=== PATIENT | female | born 1980 | race Caucasian/White ===

== ENCOUNTER 2017-02-26 11:50 | Emergency (ER) | payer OTHER ==
[~2017-02-26] VITALS: Ht 165.1 cm; Wt 72.7 kg
[~2017-02-26 11:50] MED LIST: COLACE100 MG PO; CYMBALTA60 MG PO; ENDOCET 5-3251 EACH PO; Flagyl PO; MAXALT10 MG PO; MOTRIN800 MG PO; Maxalt PO; Natalcare Rx,Pramile PO; PERCOCET 10/1 TABLET PO; Percocet 5/325,Endoc PO; Protonix PO
[2017-02-26 12:59] LABS: HEMATOCRIT 40.3 % (36.0-46.0); HEMOGLOBIN 13.7 G/DL (11.9-15.5); MCH 30.5 PG (29.0-34.0); MCV 89.8 FL (83-99); PLATELET COUNT 238 K/uL (156-360); RBC DIS.WIDTH-CV 13.2 % (11.8-14.6); RBC DIS.WIDTH-SD 43.4 % (39-53); RED BLOOD COUNT 4.49 M/uL (3.80-5.20); WHITE BLOOD COUNT 5.2 K/uL (4.1-10.2)
[2017-02-26 13:17] LABS: CHLORIDE 101 mEq/L (99-109); POTASSIUM 4.2 mEq/L (3.7-5.4); SODIUM 138 mEq/L (136-147)
[2017-02-26 13:18] LABS: GLUCOSE 79 mg/dL (70-99)
[2017-02-26 13:22] LABS: CREATININE 0.7 mg/dL (0.6-1.3); GFR ESTIMATE (CALCULATED) > 59 mL/min/
[2017-02-26 13:23] LABS: UREA NITROGEN (BUN) 8 mg/dL (9-23)
[2017-02-26 13:24] LABS: TROP-I INTERPRETATION NEGATIVE; TROPONIN-I < 0.01 ng/mL (0.0-0.30)
[2017-02-26 14:25] LABS: QUANTITATIVE HCG < 4.0 MIU/ML
[2017-02-26 14:36] LABS: ALBUMIN 4.1 g/dL (3.2-4.8)
[2017-02-26 14:39] LABS: TOTAL PROTEIN 7.5 g/dL (6.4-8.3)
[2017-02-26 14:40] LABS: TOTAL BILIRUBIN 1.1 mg/dL (0.0-1.0)
[2017-02-26 14:41] LABS: ALKALINE PHOSPHATASE 185 IU/L (3-129)
[2017-02-26 14:44] LABS: AST (GOT) 436 IU/L (2-34); DIRECT BILIRUBIN 0.6 mg/dL (0.0-0.3)
[2017-02-26 14:45] LABS: ALT (GPT) 375 IU/L (3-49); LIPASE 84 U/L (1.0-51.0)
[2017-02-26 15:11] LABS: TROP-I INTERPRETATION NEGATIVE; TROPONIN-I < 0.01 ng/mL (0.0-0.30)
[2017-02-26 17:12] LABS: INTER. NORMALIZED RATIO 1.1
[2017-02-26] MEDS ORDERED: ZOFRAN ODT4 MG PO (17:14)
[2017-02-26] MEDS ORDERED: NEXIUM40 MG PO (17:14)
[2017-02-26 17:15] LABS: PTT 30.8 SEC (25-37)
[2017-02-26 17:25] VITALS: BP 120/77
[2017-02-26 17:59] LABS: IRON 74 MCG/DL (35-150); TRANSFERRIN (TIBC) 240.3 mg/dL (215-380); TRANSFERRIN SATUR. 31 % (20-55)
[2017-02-26 18:16] LABS: FERRITIN 55 NG/ML (10-291)
[2017-02-28 11:01] LABS: HEPATITIS B SURFACE ANTIGEN Nonreactive
[2017-02-28 11:02] LABS: ANTI-HEPATITIS A VIRUS (IGM) Nonreactive; HEPATITIS C ANTIBODY Nonreactive
[2017-02-28 11:03] LABS: ANTI-HEPATITIS B CORE (IGM) Nonreactive
== END 2017-02-26 17:27 | disposition home or self-care (01) ==
LOC: EME 11:50
PROVIDERS: Nurse Practitioner Family
DX: R07.9 Chest pain, unspecified (principal); R10.13 Epigastric pain; K75.9 Inflammatory liver disease, unspecified; F32.9 Major depressive disorder, single episode, unspecified; R51 Headache; G89.29 Other chronic pain; Z79.891 Long term (current) use of opiate analgesic; Z88.1 Allergy status to other antibiotic agents
CPT/HCPCS: 71046; 71275; 74177; 80048; 80074; 80076; 82728; 83540; 83690; 84466; 84484; 84702; 85027; 85379; 85610; 85730; 86038; 93005; J7030